=== PATIENT | female | born 1980 | race Caucasian/White ===

== ENCOUNTER 2018-01-27 13:07 | Emergency (ER) | payer MEDICAID ==
[~2018-01-27] VITALS: Ht 167.6 cm; Wt 106.2 kg
[2018-01-27 13:34] VITALS: Ht 167.6 cm; Wt 106.2 kg
[2018-01-27 15:10] VITALS: BP 146/89
== END 2018-01-27 14:35 | disposition home or self-care (01) ==
LOC: ED 13:07
DX: R10.2 Pelvic and perineal pain (principal); I10 Essential (primary) hypertension; E66.9 Obesity, unspecified